=== PATIENT | male | born 1985 | race Two or more races ===

== ENCOUNTER 2018-03-10 15:55 | Emergency (ER) | payer OTHER ==
[~2018-03-10] VITALS: Ht 172.7 cm; Wt 95.3 kg
[2018-03-10] MEDS: KETOROLAC TROMETH 60MG/2ML VIAL IM ONE (16:48)
[2018-03-10 17:54] VITALS: BP 140/98
== END 2018-03-10 17:56 | disposition home or self-care (01) ==
LOC: ER 15:58
CPT/HCPCS: 70450 ×2; 72125 ×2; 72131 ×2; 96372 ×2; 99284; J1885 ×2